=== PATIENT | female | born 1955 | race Caucasian/White ===

== ENCOUNTER 2018-10-29 09:27 | Outpatient (CLI) | payer MEDICARE ==
[~2018-10-29 09:27] MED LIST: CEPH-368 PO; HYDR-3245 PO; IBUP-1623 PO; METH750T87 PO
== END 2018-10-29 23:59 | disposition home or self-care (01) ==
LOC: CFH 09:27
PROVIDERS: ATTEND Nurse Practitioner
DX: Z12.31 Encounter for screening mammogram for malignant neoplasm of breast (principal)
CPT/HCPCS: 77063; 77067